=== PATIENT | male | born 1985 | race Caucasian/White ===

== ENCOUNTER 2021-11-19 15:41 | Emergency (ER) | payer OTHER, SELFPAY ==
[2021-11-19 15:57] VITALS: BP 168/103; PULSE 89; RESP 16; TEMP 36.8; O2SAT 97; BMI 35.7
--- NOTE | 2021-11-19 16:05 | DI.RAD.S_ITS ---
PROCEDURE: XR KNEE LT 3V INDICATIONS: heard/felt pop TECHNIQUE: 3 views of the knee were acquired. COMPARISON: None. FINDINGS: Bones: No fractures or dislocations. No suspicious bony lesions. Soft tissues: Moderate joint effusion. No suspicious soft tissue calcifications. IMPRESSION: Moderate effusion. No visualized acute fracture or dislocation. However, if clinical concern and/or pain persist, short interval imaging followup in 7-10 days is recommended, as occult injury cannot be definitively excluded. Dictated by: Mae Castorena M.D. on 11/19/2021 at 17:02 Approved by: Mae Castorena M.D. on 11/19/2021 at 17:04
[2021-11-19] MEDS: KETOROLAC 30 MG/ML VIAL 15 MG IM (17:33)
--- NOTE | 2021-11-19 17:40 | ED.LOWEXIN ---
HPI - Extremity Injury (Lower) <LOUIS Cespedes - Last Filed: 11/19/21 19:59> General Chief Complaint: Extremity Injury, Lower Stated Complaint: Left knee popped during baseball Time Seen by Provider: 11/19/21 17:23 Source: patient Mode of arrival: Ambulatory History of Present Illness HPI Narrative: This is a 36-year-old male with history of left knee meniscal injury, previous MCL and LCL injury who presents emergency department stating that his left knee popped when he was playing baseball today and now has instability, tenderness over the medial aspect over his MCL, and he states he has significant meniscal tear injury as well. 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 He denies any sensation changes distal to his left knee, states that it feels unstable and similar to when he has had knee effusions in the past. He denies any weakness endorses suprapatellar edema which is new after this injury. He denies any significant lateral pain, states that he does have some posterior left knee pain. Denies any history of surgery in his knee. Related Data Previous Rx's Medication Instructions Recorded hydrocodone 5 mg-acetaminophen 325 1 tab PO BID PRN pain #10 tabs 11/19/21 mg tablet ketorolac 10 mg tablet 10 mg PO TID PRN pain 5 days #20 11/19/21 tabs methocarbamol 500 mg tablet 500 mg PO TID PRN muscle spasm #20 11/19/21 tabs Review of Systems <LOUIS Cespedes - Last Filed: 11/19/21 19:59> Review of Systems Narrative: General: denies fever, chills, malaise, sweats, fatigue Head/Neck: denies headache, neck pain, dizziness MSK: Endorses left knee pain, denies, muscle weakness Skin: denies rash, itching, skin lesions or other Neuro: denies numbness, tingling Patient History <LOUIS Cespedes - Last Filed: 11/19/21 19:59> Social History Smoking Status: Never smoker Smoking Status: Never smoker Substance Use Type: does not use Exam <LOUIS Cespedes - Last Filed: 11/19/21 19:59> Narrative Exam Narrative: Independently reviewed vitals signs and nursing notes. General: cooperative, comfortable, in no acute distress, well groomed Head: atraumatic, symmetrical facial expressions Neck: supple MSK: moves all extremities, neurovascularly intact, no weakness, normal tone, left knee with negative Gigi's, suprapatellar edema, tenderness over his MCL, mild tenderness over his patellar tendon and LCL, no significant laxity with varus and valgus testing, Jovani is positive in the left knee, left DP and PT pulses in his foot are 2+ with brisk cap refill. Open wound Skin: brisk capillary refill, no rash, no erythema Neuro: normal speech and cognition, A&O x3 Psych: mental status is grossly normal, congruent mood, normal affect, pleasant and cooperative Initial Vital Signs Initial Vital Signs: Vital Signs Temperature 98.3 F 11/19/21 15:57 Pulse Rate 89 11/19/21 15:57 Respiratory Rate 16 11/19/21 15:57 Blood Pressure 168/103 H 11/19/21 15:57 Pulse Oximetry 97 11/19/21 15:57 Oxygen Delivery Method 11/19/21 15:57 <Maddy Trimble DO - Last Filed: 11/20/21 07:54> Initial Vital Signs Initial Vital Signs: Vital Signs Temperature 98.3 F 11/19/21 15:57 Pulse Rate 89 11/19/21 15:57 Respiratory Rate 16 11/19/21 15:57 Blood Pressure 168/103 H 11/19/21 15:57 Pulse Oximetry 97 11/19/21 15:57 Oxygen Delivery Method 11/19/21 15:57 Procedures <LOUIS Cespedes - Last Filed: 11/19/21 19:59> Orthopedic Splinting/Casting Injury #1: Side: left Lower Extremity Injury Location: knee Lower Extremity Immobilizer: knee immobilizer Post splinting neuro exam: intact Post splinting vascular exam: intact Placed by: Nursing Course <LOUIS Cespedes - Last Filed: 11/19/21 19:59> Orders Ordered: Discontinued Medications Hydrocodone Bitart/Acetaminophen (Hydrocodone/Acet 5/325 Tablet) 1 tab PO NOW ONE Stop: 11/19/21 17:51 Last Admin: 11/19/21 17:56 Dose: 1 tab Documented By: KENDY Ketorolac Tromethamine (Ketorolac 30 Mg/Ml Vial) 15 mg IM NOW ONE Stop: 11/19/21 17:24 Last Admin: 11/19/21 17:33 Dose: 15 mg Documented By: KENDY Methocarbamol (Methocarbamol 500 Mg Tablet) 500 mg PO NOW ONE Stop: 11/19/21 17:43 Last Admin: 11/19/21 17:56 Dose: 500 mg Documented By: KENDY Methocarbamol (Methocarbamol 500 Mg Tablet) 500 mg PO NOW ONE Stop: 11/19/21 17:51 Last Admin: 11/19/21 17:56 Dose: 500 mg Documented By: KENDY Vital Signs Vital signs: Vital Signs - 8 hr 11/19/21 15:57 11/19/21 18:06 Temperature 98.3 F Pulse Rate 89 80 Respiratory Rate 16 18 Blood Pressure 168/103 H 120/70 Pulse Oximetry 97 98 Oxygen Delivery Method Room Air <Maddy Trimble, - Last Filed: 11/20/21 07:54> Orders Ordered: Discontinued Medications Hydrocodone Bitart/Acetaminophen (Hydrocodone/Acet 5/325 Tablet) 1 tab PO NOW ONE Stop: 11/19/21 17:51 Last Admin: 11/19/21 17:56 Dose: 1 tab Documented By: KENDY Ketorolac Tromethamine (Ketorolac 30 Mg/Ml Vial) 15 mg IM NOW ONE Stop: 11/19/21 17:24 Last Admin: 11/19/21 17:33 Dose: 15 mg Documented By: KENDY Methocarbamol (Methocarbamol 500 Mg Tablet) 500 mg PO NOW ONE Stop: 11/19/21 17:43 Last Admin: 11/19/21 17:56 Dose: 500 mg Documented By: KENDY Methocarbamol (Methocarbamol 500 Mg Tablet) 500 mg PO NOW ONE Stop: 11/19/21 17:51 Last Admin: 11/19/21 17:56 Dose: 500 mg Documented By: KENDY Vital Signs Vital signs: Vital Signs - 8 hr 11/19/21 15:57 11/19/21 18:06 Temperature 98.3 F Pulse Rate 89 80 Respiratory Rate 16 18 Blood Pressure 168/103 H 120/70 Pulse Oximetry 97 98 Oxygen Delivery Method Room Air MDM - Extremity Injury (Lower) <Laisha Carlos Schroeder, [facility] - Last Filed: 11/19/21 19:59> Imaging Data Extremity x-ray #1: Radiologist's Impression: PROCEDURE:? XR KNEE LT 3V ? INDICATIONS:? heard/felt pop ? TECHNIQUE:? 3 views of the knee were acquired.? ? COMPARISON:? None. ? FINDINGS:? ? Bones:? No fractures or dislocations.? No suspicious bony lesions.? ? Soft tissues:? Moderate joint effusion.? No suspicious soft tissue calcifications.? ? ? IMPRESSION:? Moderate effusion. No visualized acute fracture or dislocation. However, if clinical concern and/or pain persist, short interval imaging followup in 7-10 days is recommended, as occult injury cannot be definitively excluded. ? ? Dictated by: Mae Castorena M.D. on 11/19/2021 at 17:02 ? ? Approved by: Mae Castorena M.D. on 11/19/2021 at 17:04 ? [facility] Narrative Medical decision making narrative: This is a pleasant 36-year-old male who presents to the emergency department complaining of left knee pain after an acute injury while playing baseball today on a history of multiple left knee injuries. States that he has prior MCL, meniscal and LCL injuries and sometimes he has a left knee effusion after significant activity, he states that today he felt and heard a loud pop on the medial aspect of his left knee, states that it feels unstable and he has a loss of some of the proprioception distal to his left knee, he has a suprapatellar effusion with palpable fluid wave. Patellar tendon feels intact, Jovani's is positive and he was fairly tender with that test. Encouraged him to follow-up at [facility] in a week for evaluation of his meniscal/possible ligamental injury. He was having muscle spasms in the emergency department of his quadriceps and was given methocarbamol, Toradol and a Percocet, discharged home with a prescription of hydrocodone, Toradol, and methocarbamol. He was fitted in a knee immobilizer and encouraged use it at all times while bearing weight on the left Band-Aid three. He was offered crutches but states that he has them. Please see an internal consultation for Dr. Edna Alatorre as she is on-call for Orthopedics and put in a consultation so he can follow-up in the office. Patient is appropriate and amenable to discharge home. Vital signs are stable on repeat examination is unremarkable. Patient has been informed of results. Patient has been given strict return to ER precautions for any new or worsening symptoms. Patient understands to follow up closely with outpatient providers as instructed. Patient understands plan and agrees to discharge home. All questions and concerns answered at this time. Discharge Plan Departure Patient Disposition: Home Clinical Impression: Effusion of knee joint, left Knee MCL sprain Qualifiers: Encounter type: initial encounter Laterality: left Qualified Code(s): S83.412A - Sprain of medial collateral ligament of left knee, initial encounter Acute meniscal injury of knee Qualifiers: Encounter type: initial encounter Laterality: left Qualified Code(s): S83.8X2A - Sprain of other specified parts of left knee, initial encounter Instructions: Meniscal Tear, Knee Sprain, DI for Knee Sprain, DI for Knee Effusion Activity Restrictions/Additional Instructions: *You have been diagnosed with a left knee injury with probable meniscal injury and MCL tear and you have a left knee effusion which means you have fluid within the joint and this is feels so unstable combined with a possible ligament tear. Please call [facility] and make an appointment for sometime next week for follow-up. Use a knee immobilizer to help provide some stability to your left leg, you might need crutches to get around, I have sent Toradol to your pharmacy, take that instead of ibuprofen every 6-8 hours as needed, you may take Tylenol or hydrocodone in addition to that, use topical Voltaren gel over your left knee and the muscle relaxers as needed for muscle spasm. Dr. Lorraine Alatorre is the orthopedist on-call so her number is [facility] phone number and you can just call and make an appointment there. I wish you the best in your recovery, please return to the emergency department if you have any sensation changes in your lower leg, worsening pain out of proportion, if you can not bend it or other concerns. *What to do: *Please continue to take your regular medications as directed. [x ] New medication prescriptions sent to your pharmacy: [[facility] ] [ ] New medication written as a paper prescription [ ] No new medications given *Please follow up with your primary care provider in 2-3 days, call for an appointment. Let them know you were seen in the Emergency Department and that we asked that you be seen for follow-up. We will electronically transmit a record of today's note if your PCP is in our system *If you do not have a primary care provider please contact [phone] to establish care with one of the [facility] primary care providers. *Return to Emergency Department if you should have any new, worsening or concerning symptoms, such as [fever greater than 101F, chills, worsening pain, persistent vomiting or other bothersome symptoms] Prescriptions: New hydrocodone-acetaminophen 5-325 mg tablet 1 tab PO BID PRN (Reason: pain) Qty: 10 0RF methocarbamol 500 mg tablet 500 mg PO TID PRN (Reason: muscle spasm) Qty: 20 0RF ketorolac 10 mg tablet 10 mg PO TID PRN (Reason: pain) 5 Days Qty: 20 0RF Rx Instructions: Take with food and water instead of ibuprofen for pain control Referrals: Edna Alatorre MD [Physician] - 5-7 days (Please call [facility] and make an appointment for follow-up for your left knee injury for next week.) Erin Galeano PA-C [Primary Care Provider] - Visit Report Forms: Patient Portal/API <Maddy Trimble DO - Last Filed: 11/20/21 07:54> [facility] ED Attending Krista Attestation: I was immediately available in the department for consultation. Documentation has been reviewed. I agree with assessment and plan.
[2021-11-19] MEDS: methocarbamoL 500 MG TABLET PO ×2 (17:56)
[2021-11-19] MEDS: HYDROCODONE/ACET 5/325 TABLET 1 TAB PO (17:56)
--- NOTE | 2021-11-19 18:05 | PC.NURSE ---
replacement crutches given to patient for worn out home pair
[2021-11-19 18:06] VITALS: BP 120/70; PULSE 80; RESP 18; O2SAT 98
== END 2021-11-19 18:06 | disposition home or self-care (01) ==
PROVIDERS: Emergency Provider Nurse Practitioner Critical Care Medicine; PCP Physician Assistant Medical
DX: S83.412A Sprain of medial collateral ligament of left knee, initial encounter (principal); S83.8X2A Sprain of other specified parts of left knee, initial encounter; M25.462 Effusion, left knee; Y93.67 Activity, basketball
CPT/HCPCS: 73562; 96372; 99283; 99284; J1885